=== PATIENT | female | born 1970 | race Hispanic/Latino ===

== ENCOUNTER 2024-02-01 23:03 | Emergency (ER) | payer OTHER, SELFPAY ==
[2024-02-01 23:22] VITALS: BP 154/90
[2024-02-01 23:29] VITALS: BP 160/104
[2024-02-02 00:04] VITALS: BP 149/73
--- NOTE | 2024-02-02 00:17 | ED.GENMED ---
History of Present Illness
<ANH Matthews - Last Filed: 02/02/24 00:42>
General
Chief Complaint: Blood Pressure Problem
Source: patient and family (son)
Exam Limitations: none
Time Seen by Provider: 02/01/24 23:37
Nursing documentation reviewed up to this point in time: agreed with
History of Present Illness
History of Present Illness:
Pt is a 53 y/o F who presents with her son who translates for her, with complaints of fluctuating BP x 2 days. She has complaints of associated left sided neck pain, fatigue, blurry vision, and lightheadedness. The left sided neck pain radiates down
the left arm. The blurry vision is worse in the right eye and has associated conjunctival injection. She denies chest pain, SOB, abdominal pain, fever, LOC, numbness, paresthesias, and weakness.
The pt has a pmhx of ovarian cysts with unilateral oophorectomy. She also has a history of cholecystectomy. Otherwise, she stated that she does not have any past medical history and she does not take any regular medication. She regularly sees her
PCP every 6 months to check her glucose and cholesterol. She states that her cholesterol was slightly elevated the last time she saw her PCP, which was 6 months ago. She has not been diagnosed with HTN before. She reports that her diet consists of a
lot of fried and salty foods. She notes that she gets 9 hours of sleep a night.
<Negrito Medrano DO - Last Filed: 02/03/24 10:06>
History of Present Illness
History of Present Illness:
Pt is a 53 y/o F who presents with her son who translates for her, with complaints of fluctuating BP x 2 days. She has complaints of associated left sided neck pain, fatigue, blurry vision, and lightheadedness. The left sided neck pain radiates down
the left arm. The blurry vision is worse in the right eye and has associated conjunctival injection. She denies chest pain, SOB, abdominal pain, fever, LOC, numbness, paresthesias, and weakness.
The pt has a pmhx of ovarian cysts with unilateral oophorectomy. She also has a history of cholecystectomy. Otherwise, she stated that she does not have any past medical history and she does not take any regular medication. She regularly sees her
PCP every 6 months to check her glucose and cholesterol. She states that her cholesterol was slightly elevated the last time she saw her PCP, which was 6 months ago. She has not been diagnosed with HTN before. She reports that her diet consists of a
lot of fried and salty foods. She notes that she gets 9 hours of sleep a night.
Dr. Medrano: Agree with above. 53-year-old female who presents for uncontrolled hypertension at home. She also reports that she has just felt a little bit lightheaded and weak and had a little bit of left-sided neck pain that was worse when she
moved. She denies any chest pain or shortness of breath. No palpitations. She was wondering if her blood pressure could be causing her symptoms. No headache. No vision changes. No [id number] medications or decongestants recently
Past History
<ANH Matthews - Last Filed: 02/02/24 00:42>
Past History
ED Past Medical History: Other (ovarian cysts)
ED Past Surgical History:
Social History
Tobacco: Non-smoker
Alcohol: None
Drug: None
Family History
Family History: Hypertension (sister)
Review of Systems
<ANH Matthews - Last Filed: 02/02/24 00:42>
Review of Systems
Allergies reviewed?: Yes
Constitutional: Reports fatigue
EENT: Reports other (Blurry vision)
Respiratory: Reports no symptoms
Cardiac: Reports no symptoms
ABD/GI: Reports no symptoms
: Reports no symptoms
Musculoskeletal: Reports neck pain
Skin: Reports no symptoms
Neurological: Reports dizzy and headache
Endocrine: Reports no symptoms
Hematologic/Lymphatic: Reports no symptoms
Psychiatric: Reports no symptoms
Phy Exam
<JustinST CharlyPA - Last Filed: 02/02/24 00:42>
General Physical Exam
General Presentation: well appearing and no apparent distress
General age: appears stated age
General Skin: warm and dry
General Habitus: normal
General Mental: alert
General Hydration: appears well hydrated
ENT Exam
ENT Exam: EOMI, neck supple, normocephalic and swallowing well
Eye Exam
Eye Exam: EOMI
Conjunctival Changes: right: chemosis
Cardiovascular Exam
Cardiovascular Exam: regular rate/rhythm, no edema, no gallop, no JVD, no murmur, normal peripheral pulses and no carotid bruit
Pulmonary Exam
Pulmonary Exam: lungs clear, no respiratory distress, no rales, chest non tender, no crackles, no rhonchi, no stridor, no wheezing and no cough
Gastrointestinal Exam
Gastrointestinal Exam: normal bowel sounds, non tender, soft, no pulsatile mass, non distended and no bruit
Neurological Exam
Neurological Exam: alert, oriented x3, CN II-XII intact, no motor deficits, normal reflexs, no sensory deficits and speech normal
Musculoskeletal Exam
Musculoskeletal Exam: neck pain, no edema and neuro vasc intact
Skin Exam
Skin Exam: normal color, warm/dry, no rash and no petechia
Psychiatric Exam
Psychiatric Exam: normal mood/affect
<Negrito Medrano DO - Last Filed: 02/03/24 10:06>
Physical Exam
Physical Exam:
CONSTITUTIONAL Patient alert and oriented to person, place and time. Well-appearing. Vital signs reviewed.
HEAD atraumatic, normocephalic.
EYES eyelids normal to inspection, Pupils equally round and reactive to light, Extraocular muscles intact, Conjunctiva normal, Sclera normal.
NECK normal range of motion, Trachea midline, no jugular venous distention.
RESPIRATORY CHEST No respiratory distress noted, Chest expansion equal, Bilateral breath sounds clear.
CARDIOVASCULAR regular rate and rhythm, Heart sounds normal.
ABDOMEN abdomen nontender, Bowel sounds normal. No distention.
BACK normal inspection, no obvious deformities
UPPER EXTREMITY range of motion normal, Motor strength normal, no cyanosis, no edema.
LOWER EXTREMITY range of motion normal, Motor strength normal, no cyanosis, no edema.
NEURO Speech normal, No focal motor deficits, Vienna coma scale 15, Memory normal, Cranial Nerves intact to screening exam.
SKIN skin warm, dry, and normal in color.
PSYCHIATRIC patient oriented to person place and time, Normal affect.
Course
<ANH Matthews - Last Filed: 02/02/24 00:42>
Orders/Labs/Results
Orders:
Orders
02/02/24 00:07
CMP [Comprehensive Metabolic Panel] Urgent
Complete Blood Count/With Diff Urgent
02/02/24 00:30
EKG [Electrocardiogram (*1)] Urgent
Reason for Study: Hypertension, Benign
02/02/24 00:31
EKG- Treatment ONCE
Abnormal Lab Results
02/02/24
00:07
MPV 10.7 H fL
(7.4-10.4)
Abs Immat Gran (auto) 0.1 H 10^3/uL
(0-0.05)
Immature Gran % 1.5 H %
(0-0.5)
Glucose 135 H mg/dl
(70-99)
02/02/24 00:07
02/02/24 00:07
Vital Signs
Initial and Last Documented VS:
Initial Vital Signs
Temp Pulse Resp BP Pulse Ox
98.7 F 75 20 154/90 97
02/01/24 23:22 02/01/24 23:22 02/01/24 23:22 02/01/24 23:22 02/01/24 23:22
Last Documented Vital Signs
Temp Pulse Resp BP Pulse Ox
98.7 F 86 11 130/71 97
02/01/24 23:22 02/02/24 01:30 02/02/24 01:30 02/02/24 01:00 02/02/24 01:30
<Negrito Medrano DO - Last Filed: 02/03/24 10:06>
Orders/Labs/Results
Orders:
Orders
02/02/24 00:07
CMP [Comprehensive Metabolic Panel] Urgent
Complete Blood Count/With Diff Urgent
02/02/24 00:30
EKG [Electrocardiogram (*1)] Urgent
Reason for Study: Hypertension, Benign
02/02/24 00:31
EKG- Treatment ONCE
Abnormal Lab Results
02/02/24
00:07
MPV 10.7 H fL
(7.4-10.4)
Abs Immat Gran (auto) 0.1 H 10^3/uL
(0-0.05)
Immature Gran % 1.5 H %
(0-0.5)
Glucose 135 H mg/dl
(70-99)
02/02/24 00:07
02/02/24 00:07
Vital Signs
Initial and Last Documented VS:
Initial Vital Signs
Temp Pulse Resp BP Pulse Ox
98.7 F 75 20 154/90 97
02/01/24 23:22 02/01/24 23:22 02/01/24 23:22 02/01/24 23:22 02/01/24 23:22
Last Documented Vital Signs
Temp Pulse Resp BP Pulse Ox
98.7 F 86 11 130/71 97
02/01/24 23:22 02/02/24 01:30 02/02/24 01:30 02/02/24 01:00 02/02/24 01:30
<ANH Matthews - Last Filed: 02/02/24 00:42>
MDM/Problems Addressed
Differential Diagnosis Includes:
Uncontrolled HTN
<Negrito Medrano DO - Last Filed: 02/03/24 10:06>
MDM/Problems Addressed
MDM/Problems Addressed:
Uncontrolled hypertension
<ANH Matthews - Last Filed: 02/02/24 00:42>
*Critical Care Note
Total Time (30-74mins, 75-104mins- exclusive of procedures): Not Applicable
<DO Mayank Tang Last Filed: 02/03/24 10:06>
*Pulse Oximetry
Patient hypoxic: no
*EKG
Interpreted by ED Provider?: Yes
Interpretation: normal
Rate: normal
Rhythm: sinus
Interval: normal interval
Ischemia: no ischemia
*[employer] Interpretation
Rate: normal
Interpretation: normal
Rhythm: sinus
*Critical Care Note
Total Time (30-74mins, 75-104mins- exclusive of procedures): Not Applicable
Data Reviewed
Source: patient and family
Prescriptions/Medications Considered But Not Given:
Considered antihypertensives but blood pressure improved significantly without intervention.
<DO Mayank Tang Last Filed: 02/03/24 10:06>
Patient Management
Escalation/DeEscalation of care consider admission/obs:
Patient appears well. Blood pressure improved without intervention. Exam normal. Labs and EKG unremarkable. Okay for discharge and outpatient follow
ED Attending Note
<ANH Matthews - Last Filed: 02/02/24 00:42>
-
Portions of this chart may have been created with voice recognition software.� Occasional wrong word or��sound alike� substitutions may have occurred due to the inherent limitations of voice recognition software.
<Negrito Medrano DO - Last Filed: 02/03/24 10:06>
ED Attending Note
Patient seen and examined by attending physician: Yes
I performed the substantive portion of visit, reviewed & personally made and approve the management plan that is documented in note by myself or UMESH.: Yes
Discharge Plan
Departure
Patient Disposition: Home (Routine Discharge)
Date of Disposition: 02/02/24
Time of Disposition: 01:31
Patient with high blood pressure during this ER visit?: No
Discharge Problem:
Uncontrolled hypertension
Instructions: High Blood Pressure (DC)
Prescriptions:
No Action
acetaminophen-codeine 1 EACH tablet
1 ea PO
hydrocodone-acetaminophen 1 TABLET tablet
1 - 2 tab PO Q4HPRN PRN (Reason: moderate to severe pain) Qty: 16 0RF
Referrals:
UNKNOWN - PT DOES,NOT KNOW [Family Provider] -
Activity Restrictions/Additional Instructions:
Please see your doctor in the next 3 to 5 days for follow-up and reevaluation and repeat of your blood pressure. Return immediately chest pain, shortness of breath, weakness of any kind or any other concerns.
Interventions
Interventions:
*Risk Screen - Suicide Last Done: 02/01/24 23:16
*General Assessment Last Done: 02/02/24 01:40
*Neglect/Abuse Screening Last Done: 02/01/24 23:22
ED- Fall Risk Assessment Last Done: 02/02/24 00:05
*ED COVID-19 Vaccine History Last Done: 02/01/24 23:22
*Nursing Disposition Last Done: 02/02/24 01:40
ED- Cardiac Assessment Last Done: 02/02/24 01:09
ED- Neurological Assessment Last Done: 02/02/24 01:09
ED- Pulmonary Assessment Last Done: 02/02/24 01:09
Discharge Date and Time
Discharge Date/Time: 02/02/24 01:40
Print Language: ARMENIAN
[2024-02-02 00:29] LABS: % Basophils 0.9 % (0-2); % Eosinophils 2.1 % (0-6); % Immature Granulocytes 1.5 % (0-0.5); % Lymphocytes 26.2 % (20.5-51.1); % Monocytes 5.6 % (1.7-9.3); % Neutrophils 63.7 % (42.2-75.2); ALT (SGPT) 31 U/L (0-35); AST (SGOT) 26 U/L (14-36); Absolute Basophils 0.1 10^3/uL (0-0.2); Absolute Eosinophils 0.2 10^3/uL (0-0.7); Absolute Immature Granulocytes 0.1 10^3/uL (0-0.05); Absolute Lymphocytes 2.5 10^3/uL (1.2-3.4); Absolute Monocytes 0.5 10^3/uL (0.1-0.6); Albumin 4.7 g/dl (3.5-5.0); Alkaline Phosphatase 69 U/L (38-126); Blood Urea Nitrogen 12 mg/dl (7-17); Calcium 9.9 mg/dl (8.4-10.2); Carbon Dioxide 24 mmol/L (22-30); Chloride 102 mmol/L (98-107); Glucose 135 mg/dl (70-99); Hematocrit 43.6 % (37.0-47.0); Hemoglobin 14.5 g/dL (12.0-16.0); Mean Corp Hgb Conc. 33.3 g/dL (33.0-37.0); Mean Corpuscular Hgb 29.7 pg (27.0-31.0); Mean Corpuscular Volume 89.2 fL (81.0-99.0); Mean Platelet Volume 10.7 fL (7.4-10.4); Nucleated Red Blood Cells % 0 %; Platelet Count 291 10^3/uL (130-400); Potassium 4.1 mmol/L (3.5-5.1); Red Blood Cell Count 4.89 10^6/uL (4.20-5.40); Red Cell Dist. Width 13.1 % (11.5-14.5); Sodium 139 mmol/L (135-145); Total Bilirubin 0.6 mg/dl (0.2-1.3); Total Protein 7.3 g/dl (6.3-8.2); White Blood Cell Count 9.4 10^3/uL (4.8-10.8); eGFR > 60.00
[2024-02-02 01:00] VITALS: BP 130/71
== END 2024-02-02 01:40 | disposition home or self-care (01) ==
LOC: EMR 23:03
PROVIDERS: EMERGENCY PHYSICIAN Emergency Medicine
DX: I10 Essential (primary) hypertension (principal)
CPT/HCPCS: 99284; 80053; 85025; 93005